=== PATIENT | female | born 1955 | race Caucasian/White ===

== ENCOUNTER 2022-03-18 10:43 | Outpatient (CLI) | payer MEDICARE, BC | END 2022-03-18 10:44 | disposition home or self-care (01) | LOC: CSHMAMMO 10:43 | PROVIDERS: ATTEND Family Medicine | DX: Z13.820 Encounter for screening for osteoporosis (principal); Z78.0 Asymptomatic menopausal state | CPT/HCPCS: 77080 ==

== ENCOUNTER 2022-03-18 11:27 | Outpatient (CLI) | payer MEDICARE, BC | END 2022-03-18 11:28 | disposition home or self-care (01) | LOC: CSHULT 11:27 | PROVIDERS: ATTEND Family Medicine | DX: Z00.00 Encounter for general adult medical examination without abnormal findings (principal); I10 Essential (primary) hypertension; I51.9 Heart disease, unspecified; I34.0 Nonrheumatic mitral (valve) insufficiency | CPT/HCPCS: 74018; 93306 ==